=== PATIENT | male | born 1950 | race Caucasian/White ===

== ENCOUNTER 2018-04-15 14:43 | Observation (INO) | payer MEDICARE, SELFPAY ==
[2018-04-15] VITALS (7 sets, daily range): BP systolic 126–155; BP diastolic 70–83; PULSE 71–93; RESP 16–18; TEMP 36.7–36.9; O2SAT 94–98; BMI 32.8; BMI 32.1
--- NOTE | 2018-04-15 14:58 | NURSING ---
NO OLD EKGS
--- NOTE | 2018-04-15 15:29 | RAD_ITS ---
STUDY: X-RAY CHEST REASON FOR EXAM: Male, 68 years old. Chest pain. TECHNIQUE: Single AP portable view of the chest. COMPARISON: Comparison is made with prior study dated August 21, 2016. FINDINGS: EKG electrodes are seen. The lungs are clear and expanded. There is no demonstrated pleural abnormality. Normal size heart. Normal mediastinum and christy. Normal visualized pulmonary arteries. There is atherosclerotic tortuosity of the aortic arch and descending thoracic aorta. There are diffuse degenerative changes of the visualized thoracic spine. There is degenerative osteoarthritis of the bilateral shoulders. There is no demonstrated abnormality of the visualized soft tissue structures of the upper abdomen. RAD/Chest 1 View (Portable) IMPRESSION: No acute abnormality is seen. Electronically Signed: Wesley Ambriz MD at 15:57 EDT Tel [phone], Service support ,
--- NOTE | 2018-04-15 15:29 | EKG12_ITS ---
Test Reason : ADMISSION EKG Blood Pressure : / mmHG Vent. Rate : 069 BPM Atrial Rate : 069 BPM P-R Int : 148 ms QRS Dur : 074 ms QT Int : 402 ms P-R-T Axes : 043 016 038 degrees QTc Int : 430 ms Normal sinus rhythm Normal ECG When compared with ECG of 15-APR-2018 14:51, MANUAL COMPARISON REQUIRED, DATA IS UNCONFIRMED Confirmed by HARRISON HARRISON, PRO ([id number]), state editor MIKE LANGFORD ([id number] on 04/17/2018 1:56:58 PM Referred By: PHILIPPE Confirmed By:PRO TERRY MD
[2018-04-15] MEDS: 0.9% Normal Saline 1,000 ML 150 ML IV (16:06)
[2018-04-15] MEDS: Aspirin 81 MG TAB.CHEW 324 MG PO (16:06)
[2018-04-15 16:33] LABS: Absolute Lymphocyte Count 1.86 X10^3/ul (0.83-4.51); Absolute Neutrophil Count 4.1 X10^3/uL (2.0-7.7); Basophil# 0.02 X10^3/uL; Basophil% 0.3 % (0-1); Eosinophils% 1.6 % (0-5); Hematocrit 41.3 % (40-54); Hemoglobin 14.1 g/dl (13.0-16.5); Lymphocyte # 1.86 X10^3/ul (4.0); Mean Corp Hgb Conc 34.1 g/gl (32-36); Mean Corpuscular Hgb 28.7 pg (27.0-32.0); Mean Corpuscular Volume 83.9 fL (80-94); Mean Platelet Vol. 9.9 fl (6.2-12.0); Monocyte# 0.33 X10^3/uL; Monocyte% 5.1 % (0-10); Neutrophil % 63.8 % (47-70); Platelet Count 243 K/mm3 (150-450); RBC Distribution Width CV 14.1 % (11.6-14.6); RBC Distribution Width SD 43.1 fl (35.1-43.9); Red Blood Count 4.92 M/mm3 (4.6-6.2); White Blood Count 6.4 K/mm3 (4.4-11.0)
[2018-04-15 16:58] LABS: Anion Gap 8 (5-15); BUN 13 mg/dL (7-18); BUN/Creat Ratio 16.1 RATIO (10-20); Calcium,Total 8.9 mg/dL (8.5-10.1); Chloride 107 mmol/L (98-107); Creatinine, Serum 0.81 mg/dL (0.70-1.30); EST Glomerular Filtration Rate 102 mL/min (>60); Est Glom Filt Rate - Afr Amer 123 mL/min (>60); Estimated Creatinine Clearance 78.03 ml/min; Glucose 197 mg/dL (74-106); Potassium 4.1 mmol/L (3.5-5.1); Sodium Level 139 mmol/L (136-145)
[2018-04-15 17:06] LABS: D-Dimer Quantitative (DVT/PE) 0.43 FEU/ug/m (0.27-0.49)
[2018-04-15 17:07] LABS: POSITIVE COUNT NO; POSITIVE DIFFERENTIAL NO; POSITIVE MORPHOLOGY NO
--- NOTE | 2018-04-15 17:11 | ED.VISSUMM ---
- ER Visit Summary Date of Service: 04/15/18 Chief Complaint: [Chest pain] History of Present Illness: The patient is a 68 M [presents the emergency department complaint of chest pain since 11 AM. Patient states that he was eating when he developed retrosternal discomfort that he described as dull. Patient thinks the pain can radiate into his head. Patient states initially the pain lasted about 45-50 minutes. He has had intermittent pain lasting several minutes since that time. Patient denies any radiation to the arms or back. Patient is never had pain like this before. He denies recent travel or surgery. He denies fever or cough.] Physical Examination: [HEENT-PERRLA, EOMI. Cranial nerves II through XII grossly intact. TMs clear. Mucous membranes moist. No adenopathy. Cardiovascular-regular rate and rhythm without murmur or ectopy Lungs-clear to auscultation, chest wall stable without crepitus or subcu emphysema Abdomen-normoactive bowel sounds, soft. Patient has some mild tenderness over left lower quadrant. Mild tenderness over the epigastric region. There is no rebound, rigidity, or perineal signs. Extremities-intact ?4, normal range of motion, normal pulses, atraumatic] Test Results: [EKG obtained on arrival showed a sinus rhythm with a ventricular rate of 84 bpm with possible left atrial enlargement. CBC with differential is normal. Chemistries were normal. Troponin was less than 0.015. Glucose was 197. Chest x-ray showed nothing acute.] Emergency Department Course and Treatment: [Patient received aspirin in the emergency department and was not having acute pain on arrival.] Treatment Plan: [Admit for further workup and evaluation] Disposition: [Admit] Impression: [Chest pain-rule out acute coronary syndrome] This note was generated with [employer] dictation software. It may contain incorrect words, spelling, and punctuation that were not noted in review of the chart prior to signing Chest ED Disposition - Plan for ED Patient: Chief Complaint: Chest Pain Referrals: Maximo Marquez MD [Primary Care Provider] -
--- NOTE | 2018-04-15 17:13 | NURSING ---
DR PAEZ FOR DR RAMIREZ
--- NOTE | 2018-04-15 17:21 | NURSING ---
PCU CP WHITE
--- NOTE | 2018-04-15 17:22 | PCM.HP.STD ---
Problem List (1) Chest pain Status: Acute (2) HTN (hypertension) Status: Chronic (3) Obesity Status: Chronic (4) Diabetes Status: Chronic History of Present Illness Date of Admission: 04/15/18 Chief Complaint: chest pain The patient is a 68 year old M with a hx of HTN, DMt2, obesity, who presents to the ER with c/o chest pain. Pain was sudden onset this AM about 1100. Pt was sitting in a chair eating breakfast, felt a sudden dull midsternal 8/10 pain. States nonradiating to the neck, head, shoulders, arms, back. He stood up and it worsened, causing him to double over. Pain continued until in the ER he received aspirin, which helped. Now it is resolved. He did have some associated dizziness, heart racing. Denied any associated SOB, diaphoresis. No leg edema. Had a stress test and heart cath 8-9 years ago at [facility] in [place], he states it was done because his parents have a heart hx, and states it was negative. His mom had CHF and his dad at 50 of [place]. [] Past Medical History Past Medical History (Chronic Problems): Chronic Problems HTN (hypertension) (Chronic) Obesity (Chronic) Diabetes (Chronic) Allergies No Known Allergies Allergy (Verified 04/15/18 14:44) Home Medications: Ambulatory Orders Medication Instructions Recorded Lisinopril [Zestril] 5 mg PO DAILY 08/21/16 Metformin HCl [Glucophage] 500 mg PO BIDCM 08/21/16 Ondansetron [Zofran Odt] 4 mg PO Q6H PRN PRN #10 tablet 08/21/16 Surgical History: no surgical history Psychiatric History: No pertinent psych hx Lives: Spouse/ Significant Other Smoking Status: Never smoker Tobacco Use: Non-smoker Alcohol: None Drugs: None - *Family History Maternal History Items: Heart Disease - CHF Paternal History Items: Heart Disease - age 50 [place] Review of Systems Constitutional: Denies: Chills, Fever, Weight Change HEENT: Denies: Head Aches, Sinus Congestion, Sinus Drainage Cardiovascular: Reports: Chest Pain, Light Headedness, Palpitations. Denies: Edema, Syncope Respiratory: Denies: Cough, Shortness of Breath, Shortness of breath at rest, Sputum production Gastrointestinal: Denies: Abdominal Pain, Nausea, Vomiting Genitourinary: Denies: Dysuria Musculoskeletal: Denies: Joint Pain, Joint Tenderness Skin: Denies: Rash, Wounds Neurological: Denies: Numbness, Tingling, Focal weakness Psychiatric: Denies: Anxiety, Depression, Homicidal Ideations, Suicidal Ideations Hematologic/ Lymphatic: Denies: Easy Bruising, Easy Bleeding VTE Information - Inpt Only VTE Present on Admission: No VTE Mechan Device Prophylaxis: None VTE Pharm Prophylaxis ordered?: Yes Patient Problems: Active and Suspected Problems Chest pain (Acute) - Physical Exam General: Alert, Oriented x3, Cooperative HEENT: Atraumatic, PERRLA, EOMI, Normocephalic Neck: Supple, No JVD, Negative Carotid Bruits Lungs: Clear to auscultation, Normal air movement Cardiovascular: Regular rate, No murmurs Abdomen: Bowel Sounds Present, Soft, Non Tender, Obese Extremities: No edema, Capillary Refill Less than 3 Seconds Skin: No rashes, No breakdown Musculoskeletal: No Tenderness to Palpation of Joints or Extremities Neurological: Cranial nerves II-XII grossly intact Psych/Mental Status: Normal Affect, Appropriate Vital Signs Temp Pulse Resp BP Pulse Ox 98.4 F 90 18 126/83 H 98 04/15/18 14:44 04/15/18 16:07 04/15/18 16:07 04/15/18 16:07 04/15/18 16:07 Oxygen Delivery Method Room Air Weight: 197 lb 5.019 oz Body Mass Index (BMI) 32.8 Laboratory Tests Past 24 Hrs 04/15/18 04/15/18 04/15/18 16:05 16:05 16:05 WBC 6.4 RBC 4.92 Hgb 14.1 Hct 41.3 MCV 83.9 MCH 28.7 MCHC 34.1 RDW 14.1 RDW Differential 43.1 Plt Count 243 MPV 9.9 Immature Gran % (Auto) 0.200 Neut % (Auto) 63.8 Lymph % (Auto) 29.0 Wheeler % (Auto) 5.1 Eos % (Auto) 1.6 Baso % (Auto) 0.3 Absolute Neuts (auto) 4.1 Absolute Lymphs (auto) 1.86 Total Counted Not Reportable D-Dimer Quant (PE/DVT) 0.43 Sodium 139 Potassium 4.1 Chloride 107 Carbon Dioxide 24.0 Anion Gap 8 BUN 13 Creatinine 0.81 Estim Creat Clear Calc 78.03 Est GFR (MDRD) Af Amer 123 Est GFR (MDRD) Non-Af 102 BUN/Creatinine Ratio 16.1 Glucose 197 H Calcium 8.9 Troponin I < 0.015 Assessment/Plan All Active Problems Chest pain (Acute) 1. Chest pain - risk factors: HTN, DMt2, Obesity, + family hx. No smoking hx. CXR, trop, EKG, D dimer negative. Labs unremarkable. -AM stress test, repeat EKG -Cycle enzymes -check tsh, mag, lipid panel -aspirin -prior stress/cath 8-9 years ago negative 2. DMt2 - hold metformin, check a1c and adjust meds accordingly 3. HTN - trend and adjust 4. Obesity - consult instrument technologist DVT ppx: lovenox This patient was seen by Rey Delgadillo PA-C under the supervision of Doctor Juan Antonio.
--- NOTE | 2018-04-15 17:26 | HP.PCM_ITS ---
Problem List (1) Chest pain Status: Acute (2) HTN (hypertension) Status: Chronic (3) Obesity Status: Chronic (4) Diabetes Status: Chronic History of Present Illness Date of Admission: 04/15/18 Chief Complaint: chest pain The patient is a 68 year old M with a hx of HTN, DMt2, obesity, who presents to the ER with c/o chest pain. Pain was sudden onset this AM about 1100. Pt was sitting in a chair eating breakfast, felt a sudden dull midsternal 8/10 pain. States nonradiating to the neck, head, shoulders, arms, back. He stood up and it worsened, causing him to double over. Pain continued until in the ER he received aspirin, which helped. Now it is resolved. He did have some associated dizziness, heart racing. Denied any associated SOB, diaphoresis. No leg edema. Had a stress test and heart cath 8-9 years ago at [facility] in [place], he states it was done because his parents have a heart hx, and states it was negative. His mom had CHF and his dad at 50 of [place]. [] Past Medical History Past Medical History (Chronic Problems): Chronic Problems HTN (hypertension) (Chronic) Obesity (Chronic) Diabetes (Chronic) Allergies No Known Allergies Allergy (Verified 04/15/18 14:44) Home Medications: Ambulatory Orders Medication Instructions Recorded Lisinopril [Zestril] 5 mg PO DAILY 08/21/16 Metformin HCl [Glucophage] 500 mg PO BIDCM 08/21/16 Ondansetron [Zofran Odt] 4 mg PO Q6H PRN PRN #10 tablet 08/21/16 Surgical History: no surgical history Psychiatric History: No pertinent psych hx Lives: Spouse/ Significant Other Smoking Status: Never smoker Tobacco Use: Non-smoker Alcohol: None Drugs: None - *Family History Maternal History Items: Heart Disease - CHF Paternal History Items: Heart Disease - age 50 [place] Review of Systems Constitutional: Denies: Chills, Fever, Weight Change HEENT: Denies: Head Aches, Sinus Congestion, Sinus Drainage Cardiovascular: Reports: Chest Pain, Light Headedness, Palpitations. Denies: Edema, Syncope Respiratory: Denies: Cough, Shortness of Breath, Shortness of breath at rest, Sputum production Gastrointestinal: Denies: Abdominal Pain, Nausea, Vomiting Genitourinary: Denies: Dysuria Musculoskeletal: Denies: Joint Pain, Joint Tenderness Skin: Denies: Rash, Wounds Neurological: Denies: Numbness, Tingling, Focal weakness Psychiatric: Denies: Anxiety, Depression, Homicidal Ideations, Suicidal Ideations Hematologic/ Lymphatic: Denies: Easy Bruising, Easy Bleeding VTE Information - Inpt Only VTE Present on Admission: No VTE Mechan Device Prophylaxis: None VTE Pharm Prophylaxis ordered?: Yes Patient Problems: Active and Suspected Problems Chest pain (Acute) - Physical Exam General: Alert, Oriented x3, Cooperative HEENT: Atraumatic, PERRLA, EOMI, Normocephalic Neck: Supple, No JVD, Negative Carotid Bruits Lungs: Clear to auscultation, Normal air movement Cardiovascular: Regular rate, No murmurs Abdomen: Bowel Sounds Present, Soft, Non Tender, Obese Extremities: No edema, Capillary Refill Less than 3 Seconds Skin: No rashes, No breakdown Musculoskeletal: No Tenderness to Palpation of Joints or Extremities Neurological: Cranial nerves II-XII grossly intact Psych/Mental Status: Normal Affect, Appropriate Vital Signs Temp Pulse Resp BP Pulse Ox 98.4 F 90 18 126/83 H 98 04/15/18 14:44 04/15/18 16:07 04/15/18 16:07 04/15/18 16:07 04/15/18 16:07 Oxygen Delivery Method Room Air Weight: 197 lb 5.019 oz Body Mass Index (BMI) 32.8 Laboratory Tests Past 24 Hrs 04/15/18 04/15/18 04/15/18 16:05 16:05 16:05 WBC 6.4 RBC 4.92 Hgb 14.1 Hct 41.3 MCV 83.9 MCH 28.7 MCHC 34.1 RDW 14.1 RDW Differential 43.1 Plt Count 243 MPV 9.9 Immature Gran % (Auto) 0.200 Neut % (Auto) 63.8 Lymph % (Auto) 29.0 Cooper % (Auto) 5.1 Eos % (Auto) 1.6 Baso % (Auto) 0.3 Absolute Neuts (auto) 4.1 Absolute Lymphs (auto) 1.86 Total Counted Not Reportable D-Dimer Quant (PE/DVT) 0.43 Sodium 139 Potassium 4.1 Chloride 107 Carbon Dioxide 24.0 Anion Gap 8 BUN 13 Creatinine 0.81 Estim Creat Clear Calc 78.03 Est GFR (MDRD) Af Amer 123 Est GFR (MDRD) Non-Af 102 BUN/Creatinine Ratio 16.1 Glucose 197 H Calcium 8.9 Troponin I < 0.015 Assessment/Plan All Active Problems Chest pain (Acute) 1. Chest pain - risk factors: HTN, DMt2, Obesity, + family hx. No smoking hx. CXR, trop, EKG, D dimer negative. Labs unremarkable. -AM stress test, repeat EKG -Cycle enzymes -check tsh, mag, lipid panel -aspirin -prior stress/cath 8-9 years ago negative 2. DMt2 - hold metformin, check a1c and adjust meds accordingly 3. HTN - trend and adjust 4. Obesity - consult jig bore operator DVT ppx: lovenox This patient was seen by Rey Delgadillo PA-C under the supervision of Doctor Juan Antonio.
--- NOTE | 2018-04-15 17:41 | NURSING ---
[id number] Called ED pharmacist in charge owner to send patient
--- NOTE | 2018-04-15 17:58 | EKG12_ITS ---
Test Reason : CP Blood Pressure : / mmHG Vent. Rate : 084 BPM Atrial Rate : 084 BPM P-R Int : 128 ms QRS Dur : 072 ms QT Int : 364 ms P-R-T Axes : 041 003 022 degrees QTc Int : 430 ms Normal sinus rhythm Possible Left atrial enlargement Borderline ECG Confirmed by HARRISON HARRISON, PRO ([id number]), science editor MIKE LANGFORD ([id number]) on 04/17/2018 1:40:50 PM Referred By: MAXIMUS Confirmed By:PRO TERRY MD
[2018-04-15] MEDS: 0.9% Normal Saline 1,000 ML 100 ML IV (18:20)
[2018-04-15 19:05] LABS: Magnesium 1.7 mg/dL (1.6-2.6); Thyroid Stim Hormone (TSH) 1.91 uIU/mL (0.358-3.74)
[2018-04-15 20:02] LABS: Hemoglobin A1c 8.5 % (4.2-6.3)
[2018-04-15] MEDS: Famotidine 20 MG Tablet PO (21:49)
[2018-04-15] MEDS: Insulin Lispro 100 UNIT/ML INSULN.PEN SC (21:52)
[2018-04-15 22:06] LABS: Bedside Glucose 289 mg/dL (70-110)
[2018-04-16] VITALS (7 sets, daily range): BP systolic 125–133; BP diastolic 73–79; PULSE 70–87; RESP 16–18; TEMP 36.7–36.8; O2SAT 94–98
[2018-04-16] MEDS: 0.9% Normal Saline 1,000 ML 100 ML IV (01:20)
[2018-04-16 05:04] LABS: Hemoglobin 13.7 g/dl (13.0-16.5); Mean Corp Hgb Conc 34.3 g/gl (32-36); Mean Corpuscular Hgb 28.7 pg (27.0-32.0); Mean Corpuscular Volume 83.7 fL (80-94); Mean Platelet Vol. 9.8 fl (6.2-12.0); Platelet Count 240 K/mm3 (150-450); RBC Distribution Width CV 14.1 % (11.6-14.6); RBC Distribution Width SD 42.9 fl (35.1-43.9); Red Blood Count 4.78 M/mm3 (4.6-6.2); White Blood Count 6.3 K/mm3 (4.4-11.0)
[2018-04-16 05:05] LABS: Scan Indicated on CBC? Y/N NO
[2018-04-16 05:12] LABS: International Normalized Ratio 1.1; Partial Thromboplast Time 28.1 Seconds (24.1-36.2); Prothrombin Time (Protime)PT. 14.1 SECONDS (11.7-14.9)
[2018-04-16 05:20] LABS: Anion Gap 9 (5-15); BUN 10 mg/dL (7-18); BUN/Creat Ratio 15.9 RATIO (10-20); Calcium,Total 8.2 mg/dL (8.5-10.1); Chloride 109 mmol/L (98-107); Cholesterol 187 mg/dL (200); Creatinine, Serum 0.63 mg/dL (0.70-1.30); EST Glomerular Filtration Rate 136 mL/min (>60); Est Glom Filt Rate - Afr Amer 164 mL/min (>60); Estimated Creatinine Clearance 63.21 ml/min; Glucose 124 mg/dL (74-106); High Density Lipoprotein 54 mg/dL; Potassium 3.9 mmol/L (3.5-5.1); Sodium Level 144 mmol/L (136-145); Triglycerides 99 mg/dL; Very Low Density Lipoprotein 20 mg/dL (5-40)
[2018-04-16] MEDS: Lisinopril 5 MG Tablet PO (05:51)
[2018-04-16] MEDS: Aspirin E.C. 81 MG Tablet PO (05:52)
--- NOTE | 2018-04-16 05:55 | EKG12_ITS ---
Test Reason : AM EKG Blood Pressure : / mmHG Vent. Rate : 075 BPM Atrial Rate : 075 BPM P-R Int : 130 ms QRS Dur : 074 ms QT Int : 402 ms P-R-T Axes : 046 014 032 degrees QTc Int : 448 ms Normal sinus rhythm Normal ECG When compared with ECG of 15-APR-2018 19:01, MANUAL COMPARISON REQUIRED, DATA IS UNCONFIRMED Confirmed by HARRISON HARRISON, PRO ([id number]), web content editor MIKE LANGFORD ([id number]) on 04/17/2018 1:54:51 PM Referred By: PHILIPPE Confirmed By:PRO TERRY MD
[2018-04-16 06:10] LABS: Bedside Glucose 128 mg/dL (70-110)
--- NOTE | 2018-04-16 08:50 | STRESSREP ---
Stress Test Report Exercise myocardial perfusion stress test. 68-year-old man with a history of chest pain. Medications: Aspirin, Lovenox, Pepcid. Next Stress protocol: Resting EKG demonstrates normal sinus rhythm with rate of 64 bpm normal intervals and noted resting blood pressure is 134/90 mmHg. The patient exercised according to regular Roland protocol for a total duration of 4 minutes and 29 seconds the maximum heart rate attained was 155 bpm which was 100% of maximum predicted heart rate. The patient attained 6.5 metabolic equivalents. Patient completed 1 minute and 29 seconds into stage II of the Roland protocol. At rest there were no ST or T-wave changes noted suggest ischemia peak exercise no ST or T-wave changes were noted suggest ischemia no clinical angina was noted the test was terminated due to shortness of breath. The patient did have persistent chest pain throughout which did not denote angina. The resting blood pressure is 134/90 with a peak blood pressure 160/88. Myocardial perfusion protocol. 11.8 mCi of technetium 99m sestamibi was injected at rest. The patient exercised according to regular Roland protocol for 4-1/2 minutes. At peak exercise 33.9 mCi of technetium 99m sestamibi was injected stress images were obtained stress and rest images were reconstructed and compared in the short axis vertical long horizontal long axis. Gated images were also obtained pre- Perfusion SPECT analysis: Review of the stress images demonstrate normal uptake of tracer noted in all areas of the myocardium. The resting images similarly demonstrate normal uptake of tracer noted in all areas of the myocardium. No areas of reversibility are noted suggest ischemia and no previous infarct is noted. Gated SPECT analysis: The gated ejection fraction is 69%. Conclusion: Normal exercise myocardial perfusion stress test at a moderate workload. Atypical chest pain noted. Preserved ejection fraction.
[2018-04-16] MEDS: Famotidine 20 MG Tablet PO (09:05)
[2018-04-16] MEDS: Enoxaparin 40 MG/0.4 ML Syringe SC (09:05)
[2018-04-16 11:10] LABS: Bedside Glucose 264 mg/dL (70-110)
--- NOTE | 2018-04-16 12:05 | DCINST_ITS ---
- Discharge Diagnoses Current Active Problems: Current Active and Chronic Problems Chest pain (Acute) HTN (hypertension) (Chronic) Obesity (Chronic) Diabetes (Chronic) You will use the following diet at home:: Calorie/Carbohydrate Controlled ( specify 1200, 1400, etc) - 1800 calories per day Your food should be the consistency of: Regular Your liquids should be the consistency of: Regular/Thin Discharge Activity: Return to Normal Activity Allergies/Adverse Reactions: Allergies No Known Allergies Allergy (Verified 04/15/18 14:44) Medications to take at Discharge Lisinopril [Zestril] 5 mg PO DAILY 08/21/16 Finasteride [Proscar] 5 mg PO DAILY 04/15/18 Metformin HCl 1,000 mg PO BID #60 tab 04/16/18 The following prescriptions were given: Metformin HCl 1,000 mg PO BID #60 tab Primary Care Physician: Maximo Marquez MD [Primary Care Provider] - Please follow up with your Primary Care Physician in: 1-2 weeks Test Results: Test results from this visit will be discussed in further detail at your follow- up appointment, if applicable. Proposed Discharge Date: 04/16/18
--- NOTE | 2018-04-16 14:59 | PCM.DC.SUM ---
<Rey Delgadillo - Last Filed: 04/16/18 14:59> Discharge Date and Diagnosis Date of Admission: 04/15/18 Date of Discharge: 04/16/18 - Primary Discharge Diagnosis Chest pain-musculoskeletal Hypertension Diabetes type 2 Obesity - Secondary Discharge Diagnosis Chronic Problems HTN (hypertension) (Chronic) Obesity (Chronic) Diabetes (Chronic) Hospital Course and Treatment Imaging Results: RAD/Chest 1 View (Portable) IMPRESSION: No acute abnormality is seen. Stress test: Conclusion: Normal exercise myocardial perfusion stress test at a moderate workload. Atypical chest pain noted. Preserved ejection fraction. Operations: None Procedures: Stress test Summary of Care Provided: Physical exam on day of discharge: General: Resting comfortably NAD Psych: A/Ox3 normal affect HEENT: PEARRLA AT NC Neck: Supple NT CV: RRR no m/t/r/g/h Resp: CTA Abd: [id number] Soft NT no guarding or rigidity Ext: DP2+= no edema Skin: W/D normal turgor Lymph/Heme: No active bleeding or adenopathy Neuro: CN2-12 intact Hospital course: The patient is a 68 year old M with a past medical history of hypertension, type 2 diabetes, obesity, positive family history of coronary artery disease who presented to the emergency room with chief complaint of chest pain described as midsternal pain nonradiating with associated dizziness and palpitation for 1 day. He was brought to the emergency room and given aspirin after which his pain was relieved. He had a negative EKG, negative troponin, negative chest x-ray. He was admitted to the PCU on cardiac monitoring for chest pain workup. Troponin was cycled remain negative. He had no events on telemetry. Following morning he underwent a stress test which was negative for ischemia. Repeat EKGs were negative. Is felt that his chest pain was musculoskeletal and he was discharged home in stable condition and advised to follow-up with his PCP in 1-2 weeks. His blood sugar was significantly elevated at presentation so we checked an A1c, this was 8.5. At this time a recommend increasing his metformin to 1000 mg p.o. twice daily. This patient was seen by Rey Delgadillo PA-C under the supervision of Doctor Kristine. [] Discharge Diet: Low fat/ Low Cholesterol, 1800 Calorie Control Diet, 2000 mg Sodium Diet Discharge Activity: Return to Normal Activity Home Medications: Medications to take at Discharge Lisinopril [Zestril] 5 mg PO DAILY 08/21/16 Finasteride [Proscar] 5 mg PO DAILY 04/15/18 Metformin HCl 1,000 mg PO BID #60 tab 04/16/18 Following Prescrptions Were Given to Patient: Metformin HCl 1,000 mg PO BID #60 tab Primary Care Physician: Maximo Marquez MD [Primary Care Provider] - Please follow up with your Primary Care Physician in: 1-2 weeks Disposition: Home Minutes spent on discharge:: 35 Patient Condition:: Stable Medical Necessity - Tobacco Use Smoking Status: Never smoker Tobacco Use: Non-smoker Meaningful Use Info Meaningful Use Diagnoses (Choose all that apply): None applicable <Brown Carmona - Last Filed: 04/16/18 15:27> Discharge Date and Diagnosis - Secondary Discharge Diagnosis Chronic Problems HTN (hypertension) (Chronic) Obesity (Chronic) Diabetes (Chronic) Hospital Course and Treatment Summary of Care Provided: Addendum: Dr. Carmona I personally examined the patient and reviewed the chart. I agree with the above. 68 yo DM with chest pain. He is currently pain free and his stress test was negative. would recommend improving control of his comorbidities including obesity and DM. Agree with the increase of his metformin to 1000 BID. Will need close outpatient follow-up. Code Visit OBSV E&M: [id number] Observation care discharge
== END 2018-04-16 12:04 | disposition home or self-care (01) ==
LOC: ED 17:26 → PCU 17:37
PROVIDERS: Admitting Provider Family Medicine; Emergency Provider Emergency Medicine; Family Provider Family Medicine; PCP Family Medicine; Visit Provider Family Medicine
DX: R07.89 Other chest pain (principal); I10 Essential (primary) hypertension; E11.9 Type 2 diabetes mellitus without complications; E66.9 Obesity, unspecified; Z68.32 Body mass index [BMI] 32.0-32.9, adult; Z71.3 Dietary counseling and surveillance; Z79.84 Long term (current) use of oral hypoglycemic drugs; Z79.899 Other long term (current) drug therapy; Z82.49 Family history of ischemic heart disease and other diseases of the circulatory system; R42 Dizziness and giddiness
CPT/HCPCS: 36415; 71045; 78452; 80048; 80061; 82962; 83036; 83735; 84443; 84484; 85025; 85027; 85379; 85610; 85730; 93005; 93017; 96360; 96361; 96372; 97802; 99218; 99283; A9500; J7030; A4216; G0378

== ENCOUNTER 2019-08-09 00:42 | Observation (INO) | payer MEDICARE, SELFPAY ==
[2019-08-09] VITALS (10 sets, daily range): BP systolic 120–154; BP diastolic 75–93; PULSE 65–94; RESP 13–18; TEMP 36.4–36.7; O2SAT 93–98; BMI 33.6; BMI 32.6; BMI 32.7
--- NOTE | 2019-08-09 00:44 | ED.RN ---
RN CALLED FOR EKG, PULLED OLD EKGS FOR
--- NOTE | 2019-08-09 00:45 | EKG12_ITS ---
Test Reason : CP Blood Pressure : / mmHG Vent. Rate : 076 BPM Atrial Rate : 076 BPM P-R Int : 122 ms QRS Dur : 070 ms QT Int : 376 ms P-R-T Axes : 045 011 045 degrees QTc Int : 423 ms Normal sinus rhythm Normal ECG Confirmed by HARRISON HARRISON, PRO ([id number]), medical editor JUDITH MARES ([id number]) on 08/11/2019 1:01:39 PM Referred By: MR Confirmed By:PRO TERRY MD
[2019-08-09 00:59] LABS: Absolute Lymphocyte Count 2.95 X10^3/uL (0.83-4.51); Absolute Neutrophil Count 3.6 X10^3/uL (2.0-7.7); Basophil# 0.02 X10^3/uL; Basophil% 0.3 % (0-1); Eosinophil# 0.14 X10^3/uL; Eosinophils% 1.9 % (0-5); Hematocrit 41.1 % (40-54); Hemoglobin 13.6 g/dL (13.0-16.5); Lymphocyte # 2.95 X10^3/ul (4.0); Lymphocyte % 40.5 % (19-41); Mean Corp Hgb Conc 33.1 g/dL (32-36); Mean Corpuscular Hgb 28.2 pg (27.0-32.0); Mean Corpuscular Volume 85.1 fL (80-94); Mean Platelet Vol. 8.9 fl (6.2-12.0); Monocyte# 0.55 X10^3/uL; Monocyte% 7.5 % (0-10); NRBC Flagged by Analyzer 0 % (0-5); Neutrophil # 3.62 X10^3/uL (2.7-7.7); Neutrophil % 49.7 % (47-70); Platelet Count 288 K/mm3 (150-450); RBC Distribution Width CV 14.6 % (11.6-14.6); RBC Distribution Width SD 44.9 fl (35.1-43.9); Red Blood Count 4.83 M/mm3 (4.6-6.2); White Blood Count 7.3 K/mm3 (4.4-11.0)
[2019-08-09 01:17] LABS: Anion Gap 5 (5-15); BUN 15 mg/dL (7-18); BUN/Creat Ratio 20.2 RATIO (10-20); Chloride 111 mmol/L (98-107); Creatinine, Serum 0.74 mg/dL (0.70-1.30); EST Glomerular Filtration Rate 111 mL/min (>60); Est Glom Filt Rate - Afr Amer 135 mL/min (>60); Estimated Creatinine Clearance 60.02 ml/min; Glucose 128 mg/dL (74-106); Sodium Level 141 mmol/L (136-145)
--- NOTE | 2019-08-09 01:20 | RAD_ITS ---
STUDY: X-RAY CHEST REASON FOR EXAM: Male, 69 years old. CHEST PAIN TECHNIQUE: Portable chest COMPARISON: 04/15/2018 FINDINGS: The lungs are clear and expanded. There is no demonstrated pleural abnormality. Normal size heart. Normal mediastinum and christy. Normal visualized pulmonary arteries. Normal visualized aortic arch and descending thoracic aorta. There are degenerative changes of the thoracic spine unchanged.. Normal visualized ribs, clavicles, and shoulders. There is no demonstrated abnormality of the visualized soft tissue structures of the upper abdomen. RAD/Chest 1 View (Portable) IMPRESSION: No acute process, no change from prior Electronically Signed: Jonathan Alvarado, at 2:58 EST Tel , Service support ,
--- NOTE | 2019-08-09 01:35 | HP.PCM_ITS ---
Problem List (1) Chest pain Status: Acute (2) HTN (hypertension) Status: Chronic (3) Obesity Status: Chronic (4) Diabetes Status: Chronic History of Present Illness Date of Admission: 08/09/19 Chief Complaint: chest pain The patient is a 69 year old M with a significant history of hypertension; hyperlipidemia; obesity and diabetes who presents at the emergency department with chest pain that started while he was lying down. The chest pain is substernal. It felt like a pressure. It is nonradiating. He denies any aggravating or ameliorating factors. The chest pain initially was a 9 and it improved on itself to a 6. Reports last stress test 7 years ago in [place]. Past Medical History Past Medical History (Chronic Problems): Chronic Problems HTN (hypertension) (Chronic) Obesity (Chronic) Diabetes (Chronic) Allergies No Known Allergies Allergy (Verified 08/09/19 00:49) Home Medications: Ambulatory Orders Medication Instructions Recorded Lisinopril [Zestril] 5 mg PO DAILY 08/21/16 Finasteride [Proscar] 5 mg PO DAILY 04/15/18 Metformin HCl 1,000 mg PO BID #60 tab 04/16/18 Atorvastatin Calcium [Lipitor] 40 mg PO QHS 08/09/19 Oxybutynin [Ditropan] 5 mg PO BID 08/09/19 Surgical History: no surgical history Psychiatric History: No pertinent psych hx Smoking Status: Never smoker Alcohol: Occasional - *Family History Maternal History Items: Heart Disease - CHF Paternal History Items: Heart Disease - age 50 [place] Review of Systems Constitutional: Denies: Chills, Fever, Weight Change HEENT: Denies: Head Aches, Sinus Congestion, Sinus Drainage Cardiovascular: Reports: Chest Pain, Chest Pressure. Denies: Palpitations Respiratory: Reports: Shortness of Breath. Denies: Cough Gastrointestinal: Denies: Abdominal Pain, Nausea, Vomiting Genitourinary: Denies: Dysuria Musculoskeletal: Denies: Joint Pain, Joint Tenderness Skin: Denies: Rash, Wounds Neurological: Denies: Numbness, Tingling, Focal weakness Psychiatric: Denies: Anxiety, Depression, Homicidal Ideations, Suicidal Ideations Hematologic/ Lymphatic: Denies: Easy Bruising, Easy Bleeding VTE Information - Inpt Only VTE Present on Admission: No VTE Mechan Device Prophylaxis: None VTE Pharm Prophylaxis ordered?: Yes Patient Problems: Active and Suspected Problems Chest pain (Acute) - Physical Exam Vitals/I&O's: Vital Signs Temp Pulse Resp BP Pulse Ox 98.0 F 81 15 139/93 H 98 08/09/19 00:42 08/09/19 00:42 08/09/19 00:42 08/09/19 00:42 08/09/19 00:42 Oxygen Delivery Method Room Air Weight: 88.9 kg Body Mass Index (BMI) 33.6 General: Alert, Oriented x3, Cooperative HEENT: Atraumatic, PERRLA, EOMI, Normocephalic Neck: Supple, No JVD, Negative Carotid Bruits Lungs: Clear to auscultation, Normal air movement Cardiovascular: Regular rate, No murmurs Abdomen: Bowel Sounds Present, Soft, Non Tender Extremities: No edema, Capillary Refill Less than 3 Seconds Skin: No rashes, No breakdown, - - Skin with vitiligo Musculoskeletal: No Tenderness to Palpation of Joints or Extremities Neurological: Cranial nerves II-XII grossly intact Psych/Mental Status: Normal Affect, Appropriate Laboratory Results 08/09/19 00:53: WBC 7.3, RBC 4.83, Hgb 13.6, Hct 41.1, MCV 85.1, MCH 28.2, MCHC 33.1, RDW Std Deviation 44.9 H, RDW Coeff of Lachelle 14.6, Plt Count 288, MPV 8.9, Immature Gran % (Auto) 0.100, Neut % (Auto) 49.7, Lymph % (Auto) 40.5, [place] % (Auto) 7.5, Eos % (Auto) 1.9, Baso % (Auto) 0.3, Absolute Neuts (auto) 3.6, Absolute Lymphs (auto) 2.95, Nucleated RBC % 0 08/09/19 00:53: Sodium 141, Potassium 4.0, Chloride 111 H, Carbon Dioxide 25.0, Anion Gap 5, BUN 15, Creatinine 0.74, Estim Creat Clear Calc 60.02, Est GFR ( MDRD) Af Amer 135, Est GFR (MDRD) Non-Af 111, BUN/Creatinine Ratio 20.2 H, Glucose 128 H, Calcium 9.0, Troponin I < 0.015 Assessment/Plan All Active Problems Chest pain (Acute) The patient is a 69 year old M with a significant history of hypertension; hyperlipidemia; obesity and diabetes who presents at the emergency department with chest pain that started while he was lying down. Chest pain Place on a monitored bed at the PCU CXR independently reviewed confirms no acute cardiopulmonary process. EKG independently reviewed confirms no acute ST or T wave abnormality. ASA 81 mg p.o. daily Morphine as needed for pain We will check lipid panel. Statin: Home high intensity statin continued Serial cardiac enzymes Stat EKG as needed for chest pain Treadmill stress test in the AM if the cardiac enzymes are negative Diabetes mellitus with hyperglycemia Blood glucose on presentation was 128, high. Hold home metformin. Accu-Chek per protocol with correction scale insulin. DVT Prophylaxis SCD Code Visit OBSV E&M: 47769 Initial observation care L2
--- NOTE | 2019-08-09 03:19 | EKG12_ITS ---
Test Reason : AM Blood Pressure : / mmHG Vent. Rate : 068 BPM Atrial Rate : 068 BPM P-R Int : 138 ms QRS Dur : 074 ms QT Int : 416 ms P-R-T Axes : 055 016 039 degrees QTc Int : 442 ms Normal sinus rhythm Normal ECG Confirmed by KAREY HARRISON, ALISA ([id number]), video news editor MIKE LANGFORD ([id number] on 08/13/2019 11:34:19 AM Referred By: Confirmed By:ALISA EDEN MD
--- NOTE | 2019-08-09 04:13 | ED.VIS.CHEST ---
History of Present Illness Chief Complaint: Chest Pain Informant: Patient Narrative: Patient presenting for evaluation secondary to chest pain. Patient has an underlying history of diabetes and hypertension. Patient states that this evening about 4 hours prior to arrival he had an onset of chest pain. This was associated with shortness of breath. Somewhat worsened with exertion. He described it as a sharp type pain. He denies any recent DVT or PE risk factors. Patient does state that he has had a cardiac work-up in the past, but this was the distant past about 7 years ago. Patient denies any recent infectious signs or symptoms. Review of systems otherwise negative. Past Medical History - Allergies and Home Meds Allergies/Adverse Reactions: Allergies No Known Allergies Allergy (Verified 08/09/19 00:49) Past Medical History: - - Diabetes, hypertension Surgical History: no surgical history Smoking Status: Never smoker - Family History Maternal Family History: Reports: Heart Disease - CHF Paternal Family History: Reports: Heart Disease - age 50 [place] Review of Systems All systems negative except as indicated General: Denies: Chills, Fever, Sweats Eyes: Denies: Visual changes - bilaterally, Diplopia ENT: Denies: Rhinorrhea, Sore throat Cardiovascular: Reports: Chest pain Respiratory: Reports: Dyspnea Gastrointestinal: Denies: Abdominal pain, Nausea, Vomiting, Diarrhea, Melena, Hematochezia Genitourinary: Denies: Dysuria, Hematuria, Frequency Musculoskeletal: Denies: Back pain, Extremity Pain Skin: Denies: Rash, Wounds Neurological: Denies: Headache, Weakness, Numbness Physical Exam Vital Signs/Narrative: Vital Signs Temp Pulse Resp BP Pulse Ox 08/09/19 01:35 65 17 144/90 H 96 08/09/19 00:42 98.0 F 81 15 139/93 H 98 Inital Vital Signs reviewed: Yes General: Well nourished, Well developed, No Acute Distress Head: Normocephalic, Atraumatic Eyes: Perrl, EOMI ENT: Moist mucous membranes, No rhinorrhea Neck: Supple, Nontender Cardiovascular: Regular rate, Regular rhythm, No murmurs Respiratory: No distress, CTA bilaterally, Chest nontender Abdomen: Soft, Nontender, Nondistended, Normal bowel sounds Back: Nontender, Normal Inspection Extremities: Nontender, No edema Skin: Normal color, No rash Neurological: Alert, Oriented x3, Cranial nerves II-XII grossly intact, Normal Strength, Normal Sensation Psychological: Normal affect, Normal Mood Diagnostic/Tx/Re-eval Chest X-Ray - ED: 1 View, Read by ED Physician, Read by Radiologist, No Acute Disease - EKG Initial EKG Interpretation: - - Sinus rhythm of [address] segments normal T waves normal intervals no evidence of acute ischemia or arrhythmia - Medical Decision Making Patient presenting for evaluation secondary to chest pain. Chest x-ray by my personal interpretation is found to be negative as well as radiology's interpretation. CBC chemistry troponin are found to be unremarkable. EKG shows no ischemic signs. Patient's heart score is 5, he has not had a recent cardiac work-up. I believe that he requires admission. I will discuss this with the hospitalist. ED Disposition - Plan for ED Patient: Disposition: Acute Care Hospital [facility] Diagnosis: Chest pain
[2019-08-09] MEDS: Lisinopril 5 MG Tablet PO (05:54)
[2019-08-09] MEDS: Aspirin E.C. 81 MG Tablet PO (05:54)
[2019-08-09 06:36] LABS: Bedside Glucose 128 mg/dL (70-110)
[2019-08-09 07:47] LABS: Cholesterol 128 mg/dL (200); High Density Lipoprotein 59 mg/dL; Triglycerides 60 mg/dL; Very Low Density Lipoprotein 12 mg/dL (5-40)
[2019-08-09] MEDS: Acetaminophen 325 MG Tablet 650 MG PO (08:01)
--- NOTE | 2019-08-09 10:15 | STRESSREP_ITS ---
Stress Test Report Pharmacologic myocardial perfusion stress test. 69-year-old man with a history of chest pain. Stress protocol: Resting EKG demonstrates normal sinus rhythm with a rate of 66 bpm normal intervals are noted. 0.4 mg of regadenoson was infused per usual protocol for overlap intravenous saline flush injection continuous EKG monitoring was p erformed. Patient maintained sinus rhythm throughout the recording at rest were no ST or T wave changes noted suggest ischemia peak exercise upsloping ST changes only were noted with no meet criteria for ischemia. The resting blood pressures 142/80 mmHg. Myocardial perfusion protocol. 12.9 mCi of technetium 99m sestamibi was injected at rest. 0.4 mg of regadenoson was infused per usual protocol. At peak infusion 39.4 mCi of technetium 99m sestamibi was injected stress images were obtained stress and rest images were reconstructed and compared in the short axis vertical long horizontal long axis. Gated images were also obtained Perfusion SPECT analysis: Review of the images demonstrate normal uptake of tracer noted in all areas of the myocardium. The resting images similar demonstrate normal uptake of tracer noted in all areas of the myocardium. No reversibility is noted suggest ischemia no previous infarct is noted. Gated SPECT analysis: The gated ejection fraction is noted to be 62%. Conclusion: Normal pharmacologic myocardial perfusion stress test. Preserved ejection fraction.
[2019-08-09] MEDS: Finasteride 5 MG Tablet PO (10:20)
[2019-08-09] MEDS: Oxybutynin 5 MG Tablet PO (10:20)
--- NOTE | 2019-08-09 10:33 | DCINST_ITS ---
- Discharge Diagnoses Current Active Problems: Current Active and Chronic Problems Chest pain (Acute) You will use the following diet at home:: Calorie/Carbohydrate Controlled (specify 1200, 1400, etc) - 1800 denny Your food should be the consistency of: Regular Your liquids should be the consistency of: Regular/Thin Discharge Activity: Return to Normal Activity Weight Bearing Status: Full weight bearing Allergies/Adverse Reactions: Allergies No Known Allergies Allergy (Verified 08/09/19 00:49) Medications to take at Discharge Lisinopril [Zestril] 5 mg PO DAILY 08/21/16 Finasteride [Proscar] 5 mg PO DAILY 04/15/18 Metformin HCl 1,000 mg PO BID #60 tab 04/16/18 Atorvastatin Calcium [Lipitor] 40 mg PO QHS 08/09/19 Oxybutynin [Ditropan] 5 mg PO BID 08/09/19 Primary Care Physician: Maximo Marquez MD [Primary Care Provider] - Please follow up with your Primary Care Physician in: call to see when you need to see him Test Results: Test results from this visit will be discussed in further detail at your follow- up appointment, if applicable.
[2019-08-09 10:56] LABS: Bedside Glucose 160 mg/dL (70-110)
--- NOTE | 2019-08-11 15:18 | PCM.DC.SUM ---
Discharge Date and Diagnosis Date of Admission: 08/09/19 Date of Discharge: 08/09/19 - Primary Discharge Diagnosis #1 musculoskeletal chest pain #2 essential hypertension #3 type 2 diabetes - Secondary Discharge Diagnosis Chronic Problems HTN (hypertension) (Chronic) Obesity (Chronic) Diabetes (Chronic) Hospital Course and Treatment Operations: None Procedures: Nuclear stress test Summary of Care Provided: The patient is a 69 year old M was seen in the emergency room at [facility] with chief complaint of chest pain, work-up in the emergency room included cardiac enzymes, chest x-ray, and an EKG-all these did not show anything unusual. Patient was placed in observation status on PCU, cardiac enzymes were cycled and these remain normal. On 08/09/2019, patient underwent a nuclear stress test that was negative for reversible ischemia. On 08/09/2019, patient was seen and examined and felt to be in stable condition for discharge home: On examination he appeared in good health and spirits. Vital signs as documented. Skin warm and dry and without overt rashes. Neck without JVD. Lungs clear. Heart exam notable for regular rhythm, normal sounds and absence of murmurs, rubs or gallops. Abdomen unremarkable and without evidence of organomegaly, masses, or abdominal aortic enlargement. Extremities nonedematous. Neuro: Cranial nerves II through XII are grossly intact, no focal motor deficits were noted, sensation to light touch and pinprick intact. Psych: Patient is alert and oriented x3, he does not appear anxious or depressed - Physical Exam Vitals/I&O's: Vital Signs Temp Pulse Resp BP Pulse Ox 97.8 F 94 18 127/78 H 94 08/09/19 10:14 08/09/19 10:14 08/09/19 10:14 08/09/19 10:14 08/09/19 10:14 Oxygen Flow Rate (L/min) 2 Oxygen Delivery Method Room Air Weight: 86.3 kg Body Mass Index (BMI) 32.6 Intake and Output for Last 24 Hours 08/09/19 08/10/19 08/11/19 23:59 23:59 23:59 Intake Total 0 / 0 Balance 0 / 0 Discharge Activity: Return to Normal Activity Weight Bearing Status: Full weight bearing Home Medications: Medications to take at Discharge Lisinopril [Zestril] 5 mg PO DAILY 08/21/16 Finasteride [Proscar] 5 mg PO DAILY 04/15/18 Metformin HCl 1,000 mg PO BID #60 tab 04/16/18 Atorvastatin Calcium [Lipitor] 40 mg PO QHS 08/09/19 Oxybutynin [Ditropan] 5 mg PO BID 08/09/19 Primary Care Physician: Maximo Marquez MD [Primary Care Provider] - Please follow up with your Primary Care Physician in: call to see when you need to see him Disposition: Home Minutes spent on discharge:: 30 Patient Condition:: Stable Medical Necessity - Tobacco Use Smoking Status: Never smoker Meaningful Use Info Meaningful Use Diagnoses (Choose all that apply): None applicable Code Visit OBSV E&M: 14536 Observation care discharge
== END 2019-08-09 10:34 | disposition home or self-care (01) ==
LOC: ED 02:25 → PCU 02:54
PROVIDERS: Admitting Provider Hospitalist; Emergency Provider Emergency Medicine; Family Provider Family Medicine; PCP Family Medicine; Visit Provider Internal Medicine
DX: R07.89 Other chest pain (principal); I10 Essential (primary) hypertension; E66.9 Obesity, unspecified; E78.5 Hyperlipidemia, unspecified; Z79.899 Other long term (current) drug therapy; Z79.84 Long term (current) use of oral hypoglycemic drugs; E11.65 Type 2 diabetes mellitus with hyperglycemia
CPT/HCPCS: 36415; 71045; 78452; 80048; 80061; 82962; 84484; 85025; 93005; 93017; 99218; 99282; A9500; A4216; G0378; J2785

== ENCOUNTER 2020-10-14 12:00 | Outpatient (RCR) | payer MEDICARE, SELFPAY ==
[2019-08-09 03:31] VITALS: BMI 32.6
[2020-10-14] MEDS: COVID-19 VACC, MRNA(PFIZER)/PF 30 MCG/0.3 ML SYRINGE IM (12:11)
[2020-11-04] MEDS: COVID-19 VACC, MRNA(PFIZER)/PF 30 MCG/0.3 ML SYRINGE IM (12:13)
== END 2021-01-11 23:59 ==
LOC: IMMUN 12:00
PROVIDERS: PCP Family Medicine; Visit Provider Family Medicine
DX: Z23 Encounter for immunization (principal)
CPT/HCPCS: 0001A; 0002A; 91300

== ENCOUNTER → 2022-04-28 | Outpatient (CLI) | payer MEDICARE, SELFPAY ==
[2022-04-28 11:21] LABS: PSA,Total- Diagnostic 0.02 ng/mL (0.0-4.0)
== END | disposition home or self-care (01) ==
PROVIDERS: PCP Family Medicine
DX: C61 Malignant neoplasm of prostate (principal)
CPT/HCPCS: 84153